=== PATIENT | male | born 1950 | race Two or more races ===

== ENCOUNTER 2020-09-08 13:54 | Inpatient (IN) | payer MEDICARE, OTHER ==
[~2020-09-08] VITALS: Ht 167.6 cm; Wt 94.8 kg
[2020-09-08 14:34] LABS: Basophils # (auto) 0 10 ^3/uL (0-0.2); Basophils % (auto) 0.1 % (0.0-2.0); Eosinophils # (auto) 0 10 ^3/uL (0-0.8); Eosinophils % (auto) 0.2 % (0.0-7.0); Hematocrit 29.5 % (41.0-53.0); Hemoglobin 9.5 g/dL (13.5-17.5); Lymphocytes # (auto) 0.9 10 ^3/uL (0.4-5.4); Lymphocytes % (auto) 19.5 % (10.0-50.0); Mean Corpuscular Hemoglobin 31.1 pg (28.0-32.0); Mean Corpuscular Hgb Conc. 32.4 g/dL (32.0-36.0); Monocytes # (auto) 0.4 10 ^3/uL (0-1.3); Monocytes % (auto) 9.5 % (0.0-12.0); Neutrophils # (auto) 3.2 10 ^3/uL (1.6-8.6); Neutrophils % (auto) 70.7 % (37.0-80.0); Platelet Count (auto) 178 10^3/uL (140-450); Red Blood Cells 3.07 10^6/uL (4.5-5.90); Red Cell Distribution Width 17.7 % (11.8-14.3); White Blood Cell 4.5 10^3/uL (4.4-10.8)
[2020-09-08 14:53] LABS: Albumin 3.6 g/dL (3.4-5.0); Calcium 9.4 mg/dL (8.5-10.1); Potassium 4.7 mmol/L (3.5-5.1)
[2020-09-08] MEDS ORDERED: cloNIDine HCL 0.1 MG TAB PO ONE (15:00)
[2020-09-08 15:07] LABS: BUN/Creatinine Ratio 6.7; Bilirubin, Total 0.4 mg/dL (0.2-1.0); Total Protein 7.5 g/dL (6.4-8.2)
[2020-09-08] MEDS ORDERED: ACETAMINOPHEN 650 mg PER 20.3 mL UD PO ONE (15:30)
[2020-09-08] MEDS ORDERED: ZINC SULFATE 220mg CAP or TAB PO ONE (16:15)
[2020-09-08] MEDS ORDERED: methylPREDNISolone SOD SUCC 125 MG/2 ML VL IV ONE (16:15)
[2020-09-08] MEDS ORDERED: AZITHROMYCIN 500MG/ 250ML 250 ML IV ONE (16:15)
[2020-09-08] MEDS ORDERED: ASCORBIC ACID 500 MG TAB PO ONE (16:15)
[2020-09-08] MEDS ORDERED: ACETAMINOPHEN 500 MG TAB PO PRN (16:45)
[2020-09-08] MEDS ORDERED: NITROGLYCERIN 0.4 MG SL TAB SL PRN (16:45)
[2020-09-08] MEDS ORDERED: HYDROcodone-ACET 5/325MG TAB PO PRN (16:45)
[2020-09-08] MEDS ORDERED: ONDANSETRON HCL 4 MG/2 ML VIAL IV PRN (16:45)
[2020-09-08] MEDS ORDERED: MORPHINE SULF INJ 2 MG/ML SYRINGE 1ML IV PRN ×2 (16:45)
[2020-09-08] MEDS ORDERED: BUMETANIDE 2.5mg/10ml (0.25 mg/ml) INJ IV ONE (16:45)
[2020-09-08] MEDS: CHOLECALCIFEROL (VITD3) 2,000 UNIT CAP PO SCH (18:13)
[2020-09-08] MEDS ORDERED: ENOXAPARIN SOD 30 MG/0.3 ML SYRINGE SC SCH (18:14)
[2020-09-08] MEDS: FAMOTIDINE 20 MG TAB PO SCH (18:20)
[2020-09-08 18:24] LABS: Magnesium 2.6 mg/dL (1.6-2.6)
[2020-09-08 18:34] LABS: CRP High Sensitivity 4.71 mg/dL (< 0.3)
[2020-09-08] MEDS: ALBUTEROL SULF HFA 90MCG INH 200DOSE IN SCH (22:00)
[2020-09-08] MEDS: BUDESONIDE (INHALATION) 180 MCG IH IN SCH (22:00)
[2020-09-08] MEDS: DOXYCYCLINE 100MG/250ML 250 ML IV SCH (22:55)
[2020-09-08] MEDS: METOPROLOL TARTRATE 25 MG TAB PO SCH (22:57)
[2020-09-08] MEDS: ATORVASTATIN 20 MG TAB PO SCH (22:58)
[2020-09-09] VITALS (7 sets, daily range): BP systolic 139–164; BP diastolic 53–95
[2020-09-09] MEDS: hydrALAZINE HCL 20 MG/ML VL IV PRN ×3 (01:47→17:55)
--- NOTE | 2020-09-09 03:00 | NUR ---
Telemetry admit from ER AVELINO PALACIOS admitted to Telemetry unit. Patient oriented to Mak Johnson, primary RN, unit, room, bed, and unit policies regarding patient care and visiting hours. Patient now on continuous telemetry monitoring, tele box #8 and telemetry reading on arrival to unit is SB 59. Patient placed on 2L NC oxygen, weighed by bedscale. Patient is uncooperative with answering admission questions. Patient encouraged to call if they need something.
[2020-09-09] MEDS: BUDESONIDE (INHALATION) 180 MCG IH IN SCH ×2 (06:32→23:03)
[2020-09-09] MEDS: ALBUTEROL SULF HFA 90MCG INH 200DOSE IN SCH ×3 (06:32→23:03)
--- NOTE | 2020-09-09 07:35 | NUR ---
OPENING NOTE ASSUMED CARE OF PT. ALERT AND ORIENTED. NO S/S OF SOB/DISTRESS NOTED. BED SET TO LOWEST POSITION/LOCKED, BEDSIDE RAILS UP X2, CALL LIGHT WITHIN REACH. INSTRUCTED PT TO CALL FOR ASSISTANCE. UPDATED ON POC. PT VERBALIZED UNDERSTANDING. WILL CONTINUE TO MONITOR Q 1HR AND PRN.
[2020-09-09] MEDS: METOPROLOL TARTRATE 25 MG TAB PO SCH ×3 (10:00→22:00)
[2020-09-09] MEDS: DexAMETHasone SOD PHOS 10MG/1ML VIAL INJ IV SCH (10:44)
[2020-09-09] MEDS: ZINC SULFATE 220mg CAP or TAB PO SCH (10:44)
[2020-09-09] MEDS: DOXYCYCLINE 100MG/250ML 250 ML IV SCH ×2 (10:44→22:00)
[2020-09-09] MEDS: CHOLECALCIFEROL (VITD3) 2,000 UNIT CAP PO SCH (10:45)
[2020-09-09] MEDS: ASCORBIC ACID 1,000 MG TAB PO SCH (10:45)
[2020-09-09] MEDS: ASPirin-EC 81 mg tab PO SCH (10:45)
--- NOTE | 2020-09-09 11:30 | NUR ---
RECEIVED CALL FROM PATIENT SISTER JASWINDER , PER SISTER PATIENT LIVES IN A ASSISTED LIVING FACILITY. THIS NURSE WAS PROVIDED WITH THE NUMBER, THIS NURSE CALLED AND HE LIVES AT [facility]
[2020-09-09] MEDS ORDERED: SODIUM CHL 0.9% 1000 ML BAG XX ONE (13:00)
--- NOTE | 2020-09-09 13:48 | NUR ---
COVID SWAB COVID SWAB COLLECTED AND WALKED DOWN TO LAB BY NURSE JENNINGS.
[2020-09-09 14:39] LABS: Basophils # (auto) 0 10 ^3/uL (0-0.2); Basophils % (auto) 0.1 % (0.0-2.0); Eosinophils # (auto) 0 10 ^3/uL (0-0.8); Hematocrit 25.9 % (41.0-53.0); Hemoglobin 8.7 g/dL (13.5-17.5); Lymphocytes # (auto) 0.3 10 ^3/uL (0.4-5.4); Lymphocytes % (auto) 9.5 % (10.0-50.0); Mean Corpuscular Hemoglobin 32.1 pg (28.0-32.0); Mean Corpuscular Hgb Conc. 33.6 g/dL (32.0-36.0); Mean Corpuscular Volume 95.5 fL (80.0-100.0); Monocytes # (auto) 0.2 10 ^3/uL (0-1.3); Monocytes % (auto) 6.9 % (0.0-12.0); Neutrophils # (auto) 2.4 10 ^3/uL (1.6-8.6); Neutrophils % (auto) 83.5 % (37.0-80.0); Platelet Count (auto) 164 10^3/uL (140-450); Red Blood Cells 2.72 10^6/uL (4.5-5.90); Red Cell Distribution Width 17.7 % (11.8-14.3); White Blood Cell 2.9 10^3/uL (4.4-10.8)
[2020-09-09 15:17] LABS: Albumin 3.1 g/dL (3.4-5.0); BUN/Creatinine Ratio 7.2; Calcium 8.5 mg/dL (8.5-10.1); Potassium 4.2 mmol/L (3.5-5.1)
[2020-09-09 15:22] LABS: Bilirubin, Total 0.4 mg/dL (0.2-1.0); Total Protein 6.7 g/dL (6.4-8.2)
--- NOTE | 2020-09-09 17:06 | NUR ---
Assessment Regarding social service consult patient living an assisted living and patient does not remember name. Patient is a 70-year-old male who has difficulty hearing. Assessment was completed with patient sister Kymberly . Per Kymberly patient resides at [facility] and functioned with assistance from staff. Patient is on dialysis with [facility]. [facility] Informed Kymberly she has the right to participate in all discharge planning. Kymberly verbalized understanding and agreed to discharge plan. Contact Patito with [facility] advising her patient Rapid COVID results came back positive. Per Patito they will need an in house COVID to refer patient to their COVID unit in [facility]. Informed EMILI Red. Contact Jolly with [facility] who advised me they will accept patient upon discharge. Informed Jolly Caputo with [facility] they will assign patient to their COVID unit. Clinical information will be faxed to facility upon d/c day with correct MD order. Addendum: 09/09/20 at 1713 by DAREN GROVES Amended: Links added.
--- NOTE | 2020-09-09 19:49 | NUR ---
Opening Shift Note Assumed care of patient. Patient asleep but arousible with name. Patient currently on 2L NC with no S/S of distress/SOB or pain. Bed is locked in lowest position with call light within reach. Instructed on POC and to call for assist PRN, will continue to monitor for changes Q1hr and PRN.
[2020-09-09] MEDS ORDERED: EPOETIN ALFA 4,000 UNIT/ML VL SC ONE (21:00)
[2020-09-09] MEDS: HEPARIN SODIUM (PORCINE) 5000 UNITS/ML 1ML VIAL SC SCH (22:00)
[2020-09-09] MEDS: ATORVASTATIN 20 MG TAB PO SCH (22:00)
[2020-09-10 05:00] VITALS: BP 107/77
[2020-09-10] MEDS: ALBUTEROL SULF HFA 90MCG INH 200DOSE IN SCH ×3 (06:56→22:00)
[2020-09-10] MEDS: BUDESONIDE (INHALATION) 180 MCG IH IN SCH ×2 (06:56→22:00)
[2020-09-10 09:00] VITALS: BP 152/64
[2020-09-10] MEDS: ZINC SULFATE 220mg CAP or TAB PO SCH (09:31)
[2020-09-10] MEDS: DOXYCYCLINE 100MG/250ML 250 ML IV SCH ×2 (09:31→22:38)
[2020-09-10] MEDS: DexAMETHasone SOD PHOS 10MG/1ML VIAL INJ IV SCH (09:31)
[2020-09-10] MEDS: ASPirin-EC 81 mg tab PO SCH (09:35)
[2020-09-10] MEDS: METOPROLOL TARTRATE 25 MG TAB PO SCH ×2 (09:36→22:39)
[2020-09-10] MEDS: CHOLECALCIFEROL (VITD3) 2,000 UNIT CAP PO SCH (09:36)
[2020-09-10] MEDS: ASCORBIC ACID 1,000 MG TAB PO SCH (09:36)
[2020-09-10] MEDS: HEPARIN SODIUM (PORCINE) 5000 UNITS/ML 1ML VIAL SC SCH ×2 (09:37→22:39)
[2020-09-10 13:00] VITALS: BP 169/88
[2020-09-10] MEDS ORDERED: cefTRIAXone 1GM/50ML D5W 50 ML IV ONE (13:00)
[2020-09-10] MEDS: hydrALAZINE HCL 20 MG/ML VL IV PRN ×2 (13:23→19:19)
--- NOTE | 2020-09-10 14:37 | NUR ---
Contacted floor nurse inquired if repeat labs have been done today or if they can be repeated as Hgb has dropped, need to see if trending down or not.
--- NOTE | 2020-09-10 14:43 | NUR ---
Respiratory note: MDI NOT GIVEN, PT HAVING A PROCEDURE AT BEDSIDE. NO RESP DISTRESS NOTED.
[2020-09-10 17:00] VITALS: BP 185/69
[2020-09-10 19:26] LABS: Basophils # (auto) 0 10 ^3/uL (0-0.2); Basophils % (auto) 0.1 % (0.0-2.0); Eosinophils # (auto) 0 10 ^3/uL (0-0.8); Hemoglobin 9.2 g/dL (13.5-17.5); Lymphocytes # (auto) 0.4 10 ^3/uL (0.4-5.4); Lymphocytes % (auto) 7.7 % (10.0-50.0); Monocytes # (auto) 0.3 10 ^3/uL (0-1.3); Monocytes % (auto) 5.1 % (0.0-12.0); Neutrophils # (auto) 4.9 10 ^3/uL (1.6-8.6); Neutrophils % (auto) 87.1 % (37.0-80.0); Red Blood Cells 2.83 10^6/uL (4.5-5.90); White Blood Cell 5.6 10^3/uL (4.4-10.8)
[2020-09-10 19:27] LABS: Hematocrit 27.3 % (41.0-53.0); Mean Corpuscular Hemoglobin 32.5 pg (28.0-32.0); Mean Corpuscular Hgb Conc. 33.6 g/dL (32.0-36.0); Mean Corpuscular Volume 96.8 fL (80.0-100.0); Platelet Count (auto) 203 10^3/uL (140-450); Red Cell Distribution Width 17.8 % (11.8-14.3)
[2020-09-10] MEDS: FAMOTIDINE 20 MG TAB PO SCH (20:41)
[2020-09-10 22:00] VITALS: BP 158/71
--- NOTE | 2020-09-10 22:00 | NUR ---
PT RINSED OUT HIS MOUTH POST PULMICORT MDI Addendum: 09/11/20 at 0034 by RAMÓN REDMOND RT Amended: Links added.
--- NOTE | 2020-09-10 22:30 | NUR ---
/SLEEPING PILL PAGED HOSPITALIST RE: SLEEPING PILL. AWAITING CALL BACK. SPOKE TO MD REQUEST FOR SLEEPING PILL WAS DENIED. WILL CONTINUE TO MONITOR. Addendum: 09/10/20 at 2232 by Neda Vines RN WRONG PATIENT
[2020-09-10] MEDS: ATORVASTATIN 20 MG TAB PO SCH (22:38)
[2020-09-11 05:00] VITALS: BP 165/76
[2020-09-11] MEDS: ALBUTEROL SULF HFA 90MCG INH 200DOSE IN SCH ×3 (06:21→22:15)
[2020-09-11] MEDS: BUDESONIDE (INHALATION) 180 MCG IH IN SCH ×2 (06:21→22:15)
[2020-09-11] MEDS ORDERED: SODIUM CHL 0.9% 1000 ML BAG XX ONE (07:00)
[2020-09-11] MEDS: METOPROLOL TARTRATE 25 MG TAB PO SCH ×2 (07:52→21:04)
[2020-09-11 09:00] VITALS: BP 161/70
[2020-09-11] MEDS: cefTRIAXone 1GM/50ML D5W 50 ML IV SCH (09:00)
[2020-09-11] MEDS: ASPirin-EC 81 mg tab PO SCH (10:00)
[2020-09-11] MEDS: DOXYCYCLINE 100MG/250ML 250 ML IV SCH ×2 (10:00→21:03)
[2020-09-11] MEDS: HEPARIN SODIUM (PORCINE) 5000 UNITS/ML 1ML VIAL SC SCH ×2 (10:00→21:04)
[2020-09-11] MEDS: CHOLECALCIFEROL (VITD3) 2,000 UNIT CAP PO SCH (10:00)
[2020-09-11] MEDS: DexAMETHasone SOD PHOS 10MG/1ML VIAL INJ IV SCH (10:00)
[2020-09-11] MEDS: ASCORBIC ACID 1,000 MG TAB PO SCH (10:00)
[2020-09-11] MEDS: ZINC SULFATE 220mg CAP or TAB PO SCH (10:00)
[2020-09-11] MEDS ORDERED: METO-6 PO (11:42)
[2020-09-11] MEDS ORDERED: NITR0.4S29 SL (11:42)
[2020-09-11] MEDS ORDERED: ALBUAER3 IN (11:42)
[2020-09-11] MEDS ORDERED: GABA300C10 PO (11:42)
[2020-09-11] MEDS ORDERED: ACET5SOL5 PO (11:42)
[2020-09-11] MEDS ORDERED: LOSA-69 PO (11:42)
[2020-09-11] MEDS ORDERED: ATOR20TA50 PO (11:42)
[2020-09-11 12:00] VITALS: BP 148/74
[2020-09-11 12:50] VITALS: BP 160/59
[2020-09-11] MEDS ORDERED: LOSARTAN POTASSIUM 50 MG TAB PO ONE (13:30)
--- NOTE | 2020-09-11 13:55 | NUR ---
D/C Planning Placed follow up called to Jolly with [facility] advising her patient is ready to discharge. Per Jolly patient needs to test negative before being able to accept again to facility due to patient being a dialysis patient. Informed RN Sarah.
[2020-09-11] MEDS: hydrALAZINE HCL 25 MG TAB PO SCH ×2 (16:38→21:03)
[2020-09-11 16:40] VITALS: BP 142/58
--- NOTE | 2020-09-11 17:29 | NUR ---
Family Contacts Son [phone] Sister [phone] (lives in [place])
[2020-09-11] MEDS: ATORVASTATIN 20 MG TAB PO SCH (21:03)
--- NOTE | 2020-09-11 21:33 | NUR ---
PT RINSED OUT HIS MOUTH POST PULMICORT Addendum: 09/11/20 at 2159 by RAMÓN REDMOND RT Amended: Links added.
[2020-09-11 22:00] VITALS: BP 150/71
--- NOTE | 2020-09-11 22:02 | NUR ---
IV REMOVAL IV PULLED OUT PATIENT TOOK OFF JACKET.
--- NOTE | 2020-09-11 22:42 | NUR ---
ATTEMPTED IV INSERTION ATTEMPTED 2 TIMES UNSUCCESSFULLY.
[2020-09-12] VITALS (7 sets, daily range): BP systolic 162–185; BP diastolic 56–81
[2020-09-12] MEDS: hydrALAZINE HCL 25 MG TAB PO SCH ×3 (05:38→21:29)
[2020-09-12] MEDS: BUDESONIDE (INHALATION) 180 MCG IH IN SCH ×2 (06:44→21:33)
[2020-09-12] MEDS: ALBUTEROL SULF HFA 90MCG INH 200DOSE IN SCH ×3 (06:44→21:33)
[2020-09-12] MEDS: DexAMETHasone SOD PHOS 10MG/1ML VIAL INJ IV SCH (09:05)
[2020-09-12] MEDS: ZINC SULFATE 220mg CAP or TAB PO SCH (09:06)
[2020-09-12] MEDS: ASCORBIC ACID 1,000 MG TAB PO SCH (09:06)
[2020-09-12] MEDS: LOSARTAN POTASSIUM 50 MG TAB PO SCH (09:07)
[2020-09-12] MEDS: ASPirin-EC 81 mg tab PO SCH (09:07)
[2020-09-12] MEDS: CHOLECALCIFEROL (VITD3) 2,000 UNIT CAP PO SCH (09:08)
[2020-09-12] MEDS: METOPROLOL TARTRATE 25 MG TAB PO SCH ×2 (09:12→21:29)
[2020-09-12] MEDS: HEPARIN SODIUM (PORCINE) 5000 UNITS/ML 1ML VIAL SC SCH ×2 (09:28→21:30)
--- NOTE | 2020-09-12 10:30 | NUR ---
IV insertion IV access obtained, via clean sterile technique by inserting 20 gauge catheter at right forearm after 2 attempt(s). IV secured properly. No trauma to site. Patient tolerated well. NOTE:
[2020-09-12] MEDS: cefTRIAXone 1GM/50ML D5W 50 ML IV SCH (11:00)
--- NOTE | 2020-09-12 11:50 | NUR ---
Nutrition Assessment Est energy needs 7808-5253 kcal (20-25 kcal/kg BW 91kg) Est protein needs 109-118g (1.2-1.3g/kg BW 91kg r/t ESRD on HD) WIll monitor and reassess prn. Addendum: 09/12/20 at [address] Amended: Links added.
[2020-09-12] MEDS: cloNIDine HCL 0.1 MG TAB PO PRN (16:29)
[2020-09-12] MEDS: FAMOTIDINE 20 MG TAB PO SCH (18:57)
--- NOTE | 2020-09-12 19:50 | NUR ---
Opening Shift Care Patient is hard of hearing, utilized paper and pen to communicate with patient. Assumed care of patient, awake and alert x4. Patient denies pain or shortness of breath at this time. No sign/symptoms of distress noted or verbalized at this time. Instructed on plan of care and encouraged patient to call for assistance as needed, patient verbalized understanding. Bed is locked in lowest position, side rails x2 are up, call light is within reach, and bed alarm is on.
[2020-09-12] MEDS: DOXYCYCLINE 100 MG TAB/CAP PO SCH (21:28)
[2020-09-12] MEDS: ATORVASTATIN 20 MG TAB PO SCH (21:29)
--- NOTE | 2020-09-12 21:43 | NUR ---
In house Covid Swab In house covid swab collected and walked to lab by charge nurse Aimee.
[2020-09-13 05:00] VITALS: BP 150/53
[2020-09-13] MEDS: hydrALAZINE HCL 25 MG TAB PO SCH ×3 (06:05→22:01)
[2020-09-13] MEDS: BUDESONIDE (INHALATION) 180 MCG IH IN SCH ×2 (07:05→21:41)
[2020-09-13] MEDS: ALBUTEROL SULF HFA 90MCG INH 200DOSE IN SCH ×3 (07:05→21:41)
[2020-09-13 09:06] VITALS: BP 146/54
[2020-09-13] MEDS: DexAMETHasone SOD PHOS 10MG/1ML VIAL INJ IV SCH (09:50)
[2020-09-13] MEDS: cefTRIAXone 1GM/50ML D5W 50 ML IV SCH (09:50)
[2020-09-13] MEDS: ZINC SULFATE 220mg CAP or TAB PO SCH (09:51)
[2020-09-13] MEDS: ASPirin-EC 81 mg tab PO SCH (09:51)
[2020-09-13] MEDS: HEPARIN SODIUM (PORCINE) 5000 UNITS/ML 1ML VIAL SC SCH ×2 (09:51→21:58)
[2020-09-13] MEDS: DOXYCYCLINE 100 MG TAB/CAP PO SCH ×2 (09:52→21:58)
[2020-09-13] MEDS: CHOLECALCIFEROL (VITD3) 2,000 UNIT CAP PO SCH (09:52)
[2020-09-13] MEDS: LOSARTAN POTASSIUM 50 MG TAB PO SCH (09:53)
[2020-09-13] MEDS: ASCORBIC ACID 1,000 MG TAB PO SCH (09:54)
[2020-09-13] MEDS: METOPROLOL TARTRATE 25 MG TAB PO SCH ×2 (09:54→22:00)
[2020-09-13 12:44] VITALS: BP 151/60
--- NOTE | 2020-09-13 13:00 | NUR ---
SPOKE WITH DOCTOR INFORMED THAT PATIENTS SECOND IN HOUSE COVID SWAB CAME BACK POSITIVE, INFORMED THAT [facility] STILL HASNT ACCEPTED PATIENT, PER DOCTOR SHEETS CONSULT METER TECHNICIAN FOR D/C PLANNING.
[2020-09-13 17:00] VITALS: BP 170/55
[2020-09-13] MEDS: cloNIDine HCL 0.1 MG TAB PO PRN (18:38)
[2020-09-13] MEDS: ATORVASTATIN 20 MG TAB PO SCH (21:58)
[2020-09-13 22:00] VITALS: BP 152/59
--- NOTE | 2020-09-13 22:15 | NUR ---
Metoprolol Held Scheduled 22:00 Metoprolol held due to decreased heart rate. Blood pressure 152/59, Heart rate: 59. Patient received scheduled 22:00 Hydralazine. ROSALBA Waddell made aware. No new orders received at this time.
[2020-09-14 05:00] VITALS: BP 159/60
[2020-09-14] MEDS: hydrALAZINE HCL 25 MG TAB PO SCH ×3 (06:00→22:34)
[2020-09-14] MEDS ORDERED: SODIUM CHL 0.9% 1000 ML BAG XX ONE (07:00)
[2020-09-14] MEDS: BUDESONIDE (INHALATION) 180 MCG IH IN SCH ×2 (07:01→21:23)
[2020-09-14] MEDS: ALBUTEROL SULF HFA 90MCG INH 200DOSE IN SCH ×3 (07:01→21:23)
[2020-09-14 07:53] LABS: Calcium 9.4 mg/dL (8.5-10.1)
[2020-09-14 07:57] LABS: BUN/Creatinine Ratio 7.3
[2020-09-14 08:00] VITALS: BP 150/66
--- NOTE | 2020-09-14 08:06 | NUR ---
Critical Lab value Received call for lab regarding critical lab value creatinine 10.8. Dr. Ellsworth made aware of critical creatinine 10.8. No new orders received at this time. Patient is scheduled for dialysis today.
[2020-09-14] MEDS ORDERED: HEPARIN SODIUM (PORCINE) 5000 UNITS/ML 1ML VIAL ONE (09:05)
[2020-09-14] MEDS: ASCORBIC ACID 1,000 MG TAB PO SCH (09:13)
[2020-09-14] MEDS: DOXYCYCLINE 100 MG TAB/CAP PO SCH ×2 (09:13→22:35)
[2020-09-14] MEDS: DexAMETHasone SOD PHOS 10MG/1ML VIAL INJ IV SCH (09:13)
[2020-09-14] MEDS: ZINC SULFATE 220mg CAP or TAB PO SCH (09:13)
[2020-09-14] MEDS: CHOLECALCIFEROL (VITD3) 2,000 UNIT CAP PO SCH (09:14)
[2020-09-14] MEDS: ASPirin-EC 81 mg tab PO SCH (09:14)
[2020-09-14] MEDS: HEPARIN SODIUM (PORCINE) 5000 UNITS/ML 1ML VIAL SC SCH ×2 (09:16→22:40)
[2020-09-14] MEDS: METOPROLOL TARTRATE 25 MG TAB PO SCH ×2 (10:00→22:35)
[2020-09-14] MEDS: LOSARTAN POTASSIUM 50 MG TAB PO SCH (10:00)
--- NOTE | 2020-09-14 11:13 | NUR ---
re-assessment re: alejandro consult dc planning Patient will return to [facility] on discharge. Per Maru at [facility] she will call back with room number. Patient will need an order for [facility] for their covid dialysis unit prior to being discharged. Addendum: 09/14/20 at 1114 by Yola GROVES Amended: Links added.
[2020-09-14] MEDS: cefTRIAXone 1GM/50ML D5W 50 ML IV SCH (11:45)
[2020-09-14 12:00] VITALS: BP 163/78
--- NOTE | 2020-09-14 14:09 | NUR ---
re-assessment Per Maru at [facility] she has accepted patient back to facility to room 204 bed 2 and the accepting MD is Dr Myers. Safety care transport is on will call [phone]. Alberto MOCK has been notified. Addendum: 09/14/20 at 1411 by Yola Gr SS Amended: Links added.
--- NOTE | 2020-09-14 14:10 | NUR ---
LATE ENTRY NOTE FROM 09/14/2020 AT 14:10 Dr. Roger at the Bedside Dr. Roger at bedside discussing plan of care with patient. Dr. Roger made aware that this RN held patient's scheduled morning blood pressure medications due to patient being scheduled to received dialysis today. Per Dr. Acacia lambert to give scheduled 14:00 blood pressure medications.
--- NOTE | 2020-09-14 14:10 | NUR ---
D/C Planning Patient new chair time will be on M, W, F at 11:45 at [facility] in [facility] Address: [address] in [facility]. [facility] has been contact
[2020-09-14] MEDS ORDERED: CALCIUM ACETATE 667 MG CAP PO ONE (14:15)
--- NOTE | 2020-09-14 15:30 | NUR ---
Dr. Ellsworth Paged RE: Dialysis Dr. Ellsworth paged regarding scheduled dialysis for today. Awaiting call back. Patient care has been endorsed to Deena MOCK.
--- NOTE | 2020-09-14 15:39 | NUR ---
Spoke with Dr. Ellsworth RE: Dialysis Spoke with Dr. Ellsworth regarding dialysis. Per Dr. Ellsworth dialysis nurse is unable to perform dialysis today. Dr. Ellsworth is aware of critical lab value creatinine 10.8. Dr. Ellsworth aware that patient has been accepted to [facility] and is to be discharged today with chair time arranged. Per Dr. Ellsworth it is okay for patient to discharge back to [facility] without receiving dialysis today.
--- NOTE | 2020-09-14 15:40 | NUR ---
Dr. Roger Pageshayna RE: Dialysis Dr. Roger pageshayna regarding dialysis. Patient care has been endorsed to Deena MOCK.
--- NOTE | 2020-09-14 16:04 | NUR ---
Spoke with Dr. Roger RE: Dialysis Dr. Roger made aware that patient is not receiving dialysis today and per Dr. Ellsworth that is okay. Per Dr. Roger it is okay to send patient back to [facility] without receiving dialysis today. Patient has been set up with new chair Jasiel Pradhan, F at 11:45 at [facility] in [facility].
--- NOTE | 2020-09-14 16:05 | NUR ---
Closing Shift Note Patient care endorsed to Deena MOCK.
[2020-09-14 17:00] VITALS: BP 163/70
[2020-09-14] MEDS ORDERED: CALCIUM ACETATE 667 MG CAP PO SCH (18:00)
--- NOTE | 2020-09-14 19:00 | NUR ---
ENDORSED CARE TO ROSETTE MOCK
[2020-09-14] MEDS: FAMOTIDINE 20 MG TAB PO SCH (19:57)
[2020-09-14] MEDS ORDERED: EPOETIN ALFA 4,000 UNIT/ML VL SC ONE (21:00)
[2020-09-14] MEDS: ATORVASTATIN 20 MG TAB PO SCH (22:34)
--- NOTE | 2020-09-15 01:04 | NUR ---
Discharge instructions given as ordered. Encourage to follow up with PMD as instructed. All questions and concerns addressed. Patient verbalized understanding. Medication reconciliation form completed and copy given to patient. . IV removed with catheter intact, pressure dressing applied. Telemetry unit returned to ICU. Patient taken with Safety care transport via wheelchair with all personal belongings, accompanied by staff. No distress noted at time of departure.
== END 2020-09-14 23:23 | DRG 871 ==
LOC: EDBD 13:54 → ER 13:54 → TELE 16:49 → TELE-E-ADS 09-09 03:00
PROVIDERS: ADMIT Nurse Practitioner Acute Care; ATTEND Internal Medicine
PROC: 5A1D70Z Performance of Urinary Filtration, Intermittent, Less than 6 Hours Per Day (ICD-10-PCS; principal; 2020-09-09)
PROC: 5A1D70Z Performance of Urinary Filtration, Intermittent, Less than 6 Hours Per Day (ICD-10-PCS; 2020-09-11)
DX: A41.89 Other specified sepsis (principal); U07.1 COVID-19; J96.01 Acute respiratory failure with hypoxia; I21.4 Non-ST elevation (NSTEMI) myocardial infarction; J12.89 Other viral pneumonia; N18.6 End stage renal disease; I50.43 Acute on chronic combined systolic (congestive) and diastolic (congestive) heart failure; G92 Toxic encephalopathy; E87.1 Hypo-osmolality and hyponatremia; I16.1 Hypertensive emergency; I13.2 Hypertensive heart and chronic kidney disease with heart failure and with stage 5 chronic kidney disease, or end stage renal disease; J91.8 Pleural effusion in other conditions classified elsewhere; E11.22 Type 2 diabetes mellitus with diabetic chronic kidney disease; I25.10 Atherosclerotic heart disease of native coronary artery without angina pectoris; E11.51 Type 2 diabetes mellitus with diabetic peripheral angiopathy without gangrene; E66.9 Obesity, unspecified; E83.39 Other disorders of phosphorus metabolism; E78.5 Hyperlipidemia, unspecified; D63.1 Anemia in chronic kidney disease; Z99.2 Dependence on renal dialysis; Z89.512 Acquired absence of left leg below knee; Z95.1 Presence of aortocoronary bypass graft; Z79.899 Other long term (current) drug therapy; Z68.29 Body mass index [BMI] 29.0-29.9, adult
CPT/HCPCS: 36415; 71045; 80048; 80053; 82728; 82962; 83605; 83615; 83735; 83880; 84443; 84484; 85025; 85379; 86141; 87040; 87426; 87804; 90935; 93005; 93926; 93970; 94640; 96365; 96375; G0378; J0696; J1100; J1642; J3490